=== PATIENT | female | born 1950 | race Caucasian/White ===

== ENCOUNTER → 2020-05-12 | Emergency (ER) | payer OTHER ==
[~2020-05-12] VITALS: Ht 165.1 cm; Wt 63.5 kg
[~2020-05-12] MED LIST: SYNTHROID50 MCG
== END | disposition home or self-care (01) ==
LOC: ER 15:40
DX: N20.0 Calculus of kidney (principal); N39.0 Urinary tract infection, site not specified; M48.061 Spinal stenosis, lumbar region without neurogenic claudication; M54.42 Lumbago with sciatica, left side